=== PATIENT | female | born 1960 | race Caucasian/White ===

== ENCOUNTER 2016-06-15 14:15 | Emergency (ER) | payer BC ==
[~2016-06-15] VITALS: Ht 152.4 cm; Wt 59.7 kg
[~2016-06-15 14:15] MED LIST: BENTYL20 MG PO; PERCOCET 5/31 TABLET PO; ZOFRAN4 MG PO
[2016-06-15 16:14] LABS: HEMATOCRIT 39.8 % (36.0-46.0); MCH 35.7 PG (29.0-34.0); MCHC 35.2 G/DL (30.0-36.0); MCV 101.5 FL (83-99); MEAN PLAT.VOLUME 9.1 uM^3 (9.5-12.4); PLATELET COUNT 223 K/uL (156-360); RBC DIS.WIDTH-CV 12.3 % (11.8-14.6); RBC DIS.WIDTH-SD 45.3 % (39-53); RED BLOOD COUNT 3.92 M/uL (3.80-5.20); WHITE BLOOD COUNT 12.6 K/uL (4.1-10.2)
[2016-06-15 16:21] LABS: PROTHROMBIN TIME 10.2 (9.2-11.2)
[2016-06-15 16:22] LABS: CHLORIDE 100 mEq/L (99-109); SODIUM 139 mEq/L (136-147)
[2016-06-15 16:24] LABS: GLUCOSE 100 mg/dL (70-99)
[2016-06-15 16:25] LABS: ANION GAP 12 MEQ/L (2-14)
[2016-06-15 16:27] LABS: ALKALINE PHOSPHATASE 99 IU/L (3-129)
[2016-06-15 16:28] LABS: GFR ESTIMATE (CALCULATED) > 59 mL/min/
[2016-06-15 16:29] LABS: DIRECT BILIRUBIN 0.5 mg/dL (0.0-0.3); UREA NITROGEN (BUN) 9 mg/dL (9-23)
[2016-06-15 16:31] LABS: LIPASE 9 U/L (1.0-51.0)
[2016-06-15 16:35] LABS: SERUM ETHYL ALCOHOL < 10 mg/dL
[2016-06-15 17:39] LABS: POINT-OF-CARE METER ID UU13113702
[2016-06-15] MEDS ORDERED: ZANTAC150 MG PO (18:28)
[2016-06-15 18:58] VITALS: BP 115/81
== END 2016-06-15 19:36 | disposition home or self-care (01) ==
LOC: EME 14:15 → AMB 14:15
PROVIDERS: Emergency Medicine
DX: K92.2 Gastrointestinal hemorrhage, unspecified (principal); R10.84 Generalized abdominal pain; Z98.818 Other dental procedure status; F10.20 Alcohol dependence, uncomplicated; F17.200 Nicotine dependence, unspecified, uncomplicated; Z86.19 Personal history of other infectious and parasitic diseases; Z88.1 Allergy status to other antibiotic agents; Z88.5 Allergy status to narcotic agent; Z88.8 Allergy status to other drugs, medicaments and biological substances
CPT/HCPCS: 74176; 80048; 80076; 82140; 82948; 83690; 85027; 85610; 86850; 86900; 86901; 93005; 99281; 99285; G0480; J2060; J2405